=== PATIENT | male | born 1990 | race Caucasian/White ===

== ENCOUNTER → 2016-05-01 | Outpatient (CLI) | payer OTHER ==
[~2016-05-01] MED LIST: ABILIFY10 MG PO; AMOXICILLIN500 MG PO; ANAPROX DS550 MG PO; ATIVAN0.5 MG PO; BACTRIM DS 8001 TA1 PO; BUPROPION HYDR150 M4 PO; CARAFATE1 G1 PO; CATAFLAM50 MG PO; CIPROFLOXACIN500 MG PO; CLARITIN-D 10 M1 T21 PO; CLINDAMYCIN HC300 MG PO; CLINDAMYCIN150 MG PO; CLONAZEPAM0.5 M2 PO; CLONAZEPAM0.5 MG PO; DICLOFENAC SODI25 MG PO; Depakote ER500 MG PO; ENSURE; FLEXERIL10 MG PO; FLEXERIL5 MG PO; HYDROCODONE BIT1 T11 PO; IBU800 M1 PO; KEFLEX500 MG PO; MEDROL DOSEPAK4 MG PO; MELATONIN5 M2 PO; MOTRIN600 MG PO; MOTRIN800 MG PO; OMEPRAZOLE40 MG PO; PREDNICOT20 MG PO; PROTONIX40 MG PO; RISPERDAL0.25 MG PO; RISPERDAL1 MG PO; ROBAXIN500 MG PO; SEROQUEL100 MG PO; TORADOL10 MG PO; TRAZADONE HYDR100 MG PO; TRAZODONE HCL100 MG PO; TYLENOL325 M1 PO; ULTRAM50 MG PO; VISTARIL25 MG PO; VISTARIL50 MG PO; VITAMIN D50000 IU PO; ZOFRAN ODT4 MG SL; ZOLOFT100 MG PO
== END | disposition home or self-care (01) ==
LOC: MRI 11:00
DX: F25.9 Schizoaffective disorder, unspecified (principal); R51 Headache; R42 Dizziness and giddiness

== ENCOUNTER → 2016-07-31 | Outpatient (CLI) | payer OTHER | END | disposition home or self-care (01) | LOC: LAB 14:20 | DX: E55.9 Vitamin D deficiency, unspecified (principal); Z20.2 Contact with and (suspected) exposure to infections with a predominantly sexual mode of transmission ==

== ENCOUNTER → 2017-03-07 | Outpatient (CLI) | payer OTHER ==
[2017-03-07 16:46] LABS: BASO # 0.1 10*3/uL (0.0-0.1); BASO % 0.5 % (0.0-1.0); EOS # 0.3 10*3/uL (0.0-0.4); HEMATOCRIT 52.5 % (42.0-52.0); HEMOGLOBIN 17.8 g/dl (14.0-18.0); LYMPH # 1.7 10*3/uL (1.3-4.4); LYMPH % 15.9 % (27.0-41.0); MEAN CELL VOLUME 93.8 fl (80.0-94.0); MEAN CORPUSCULAR HGB 31.8 pg (27.0-31.0); MEAN CORPUSCULAR HGB CONC 33.9 g/dl (33.0-37.0); MEAN PLATELET VOLUME 12.4 fl (9.6-12.3); MONO # 0.6 10*3/uL (0.1-1.0); MONO % 5.9 % (3.0-9.0); NEUT # 7.7 10*3/uL (2.3-7.9); NEUT % 74.4 % (47.0-73.0); PLATELET COUNT AUTOMATED 183 10*3/uL (130-400); WHITE BLOOD COUNT 10.4 10*3/uL (4.8-10.8)
[2017-03-07 17:02] LABS: ALBUMIN 4.6 gm/dl (3.1-4.5); ALKALINE PHOSPHATASE 91 U/L (45-117); BUN 11 mg/dl (7-24); CHLORIDE 104 mmol/L (98-107); POTASSIUM 4.3 mmol/L (3.5-5.1); SGOT/AST 20 IU/L (3-35); SGPT/ALT 22 U/L (12-78); SODIUM 138 mmol/L (136-145); TOTAL PROTEIN 9.2 gm/dL (6.4-8.2)
== END | disposition home or self-care (01) ==
LOC: LAB 16:03
PROVIDERS: Nurse Practitioner Primary Care
DX: Z09 Encounter for follow-up examination after completed treatment for conditions other than malignant neoplasm (principal); A49.02 Methicillin resistant Staphylococcus aureus infection, unspecified site; E46 Unspecified protein-calorie malnutrition

== ENCOUNTER 2017-03-12 14:51 | Emergency (ER) | payer OTHER ==
[~2017-03-12] VITALS: Wt 54.4 kg
[2017-03-12 15:04] VITALS: BP 115/78
[2017-03-12] MEDS ORDERED: CLARITIN10 MG PO (15:16)
[2017-03-12] MEDS ORDERED: ROBITUSSIN DM 105 ML PO (15:16)
[2017-03-12] MEDS ORDERED: FLONASE ALLERG9.9 ML NAS (15:16)
[2017-03-12] MEDS ORDERED: PREDNISONE10 MG PO (15:16)
== END 2017-03-12 16:31 | disposition home or self-care (01) ==
LOC: ED 14:51
DX: B34.9 Viral infection, unspecified (principal); Z88.8 Allergy status to other drugs, medicaments and biological substances; Z79.899 Other long term (current) drug therapy

== ENCOUNTER 2017-04-12 14:05 | Emergency (ER) | payer OTHER ==
[~2017-04-12] VITALS: Ht 193 cm; Wt 63.5 kg
[~2017-04-12 14:05] MED LIST changes: +CLARITIN10 MG PO; +FLONASE ALLERG9.9 ML NAS; +PREDNISONE10 MG PO; +ROBITUSSIN DM 105 ML PO
[2017-04-12] MEDS ORDERED: VALIUM10 MG PO (14:27)
[2017-04-12 14:31] VITALS: BP 101/65
[2017-04-12] MEDS ORDERED: TESSALON PERLE100 M1 PO (15:33)
[2017-04-12] MEDS ORDERED: ZITHROMAX250 MG PO (15:33)
[2017-04-12] MEDS ORDERED: FLONASE ALLERG9.9 ML NAS (15:33)
== END 2017-04-12 18:15 | disposition home or self-care (01) ==
LOC: ED 14:05
DX: J40 Bronchitis, not specified as acute or chronic (principal); J32.9 Chronic sinusitis, unspecified; F17.200 Nicotine dependence, unspecified, uncomplicated; Z79.899 Other long term (current) drug therapy; Z88.6 Allergy status to analgesic agent

== ENCOUNTER 2017-10-18 23:51 | Emergency (ER) | payer OTHER ==
[~2017-10-18] VITALS: Ht 193 cm; Wt 74.8 kg
[~2017-10-18 23:51] MED LIST changes: +TESSALON PERLE100 M1 PO; +VALIUM10 MG PO; +ZITHROMAX250 MG PO
[2017-10-19 00:01] VITALS: BP 112/70
[2017-10-19 00:11] LABS: BASO # 0.1 10*3/uL (0.0-0.1); BASO % 0.8 % (0.0-1.0); EOS # 0.3 10*3/uL (0.0-0.4); EOS % 4.1 % (1.0-4.0); HEMATOCRIT 51.2 % (42.0-52.0); HEMOGLOBIN 17.2 g/dl (14.0-18.0); LYMPH # 2.7 10*3/uL (1.3-4.4); LYMPH % 34.5 % (27.0-41.0); MEAN CELL VOLUME 96.2 fl (80.0-94.0); MEAN CORPUSCULAR HGB 32.3 pg (27.0-31.0); MEAN CORPUSCULAR HGB CONC 33.6 g/dl (33.0-37.0); MEAN PLATELET VOLUME 12.3 fl (9.6-12.3); MONO # 0.6 10*3/uL (0.1-1.0); MONO % 7.7 % (3.0-9.0); NEUT # 4.1 10*3/uL (2.3-7.9); NEUT % 52.3 % (47.0-73.0); PLATELET COUNT AUTOMATED 161 10*3/uL (130-400); RED BLOOD COUNT 5.32 10*6/uL (4.50-5.90); RED CELL DISTRI WIDTH 12.6 % (0-14.5); WHITE BLOOD COUNT 7.8 10*3/uL (4.8-10.8)
[2017-10-19 00:21] LABS: ACT PARTIAL THROMBO TIME 26.6 SECONDS (20.8-31.5)
[2017-10-19 00:27] LABS: ALBUMIN 4.4 gm/dl (3.1-4.5); ALKALINE PHOSPHATASE 68 U/L (45-117); BUN 13 mg/dl (7-24); CHLORIDE 107 mmol/L (98-107); CREATININE 1.04 mg/dL (0.70-1.30); POTASSIUM 3.8 mmol/L (3.5-5.1); SGOT/AST 19 IU/L (3-35); SGPT/ALT 26 U/L (12-78); SODIUM 143 mmol/L (136-145); TOTAL PROTEIN 8.1 gm/dL (6.4-8.2)
[2017-10-19 00:30] LABS: TROPONIN I < 0.015 ng/ml (<0.045)
[2017-10-19] MEDS ORDERED: SEROQUEL XR400 MG PO (01:04)
== END 2017-10-19 03:04 | disposition home or self-care (01) ==
LOC: ED 23:51
PROVIDERS: Student in an Organized Health Care Education/Training Program
DX: R07.89 Other chest pain (principal); Z79.899 Other long term (current) drug therapy; Z88.6 Allergy status to analgesic agent

== ENCOUNTER → 2017-11-25 | Outpatient (CLI) | payer OTHER ==
[~2017-11-25] MED LIST changes: +ASPIRIN81 M1 PO; +SEROQUEL XR400 MG PO
--- NOTE | ~2017-11-25 | ST ---
[place], [place] EXERCISE STRESS TEST REPORT NAME: CARLOS RAMOS [facility] #: [id number] UNIT #: [id number] ROOM: DOCTOR: DARCIE OVERTON MD BIRTHDATE: [birth year] DOS: 11/25/2017 INDICATIONS: Precordial chest pain. REFERRED BY: Dr. Ailin Jha. FINDINGS: The patient walked on a full Xander treadmill stress test for 11 minutes 2 seconds. He stopped because of leg fatigue. He achieved a maximum heart rate of 160, which represented 82% of his maximum predicted heart rate. The resting blood pressure of 100/80 fozia to 138/76. The patient's electrocardiogram was normal throughout. He did have early repolarization changes at rest. These normalized with exercise, but he did not develop any diagnostic ST depression or further elevation. He achieved an exercise MET level of 12.5. He had pain throughout the study and did not notice any change in his pain with exercise. IMPRESSION: 1. Good exercise capacity without change in baseline chest pain and without EKG changes. 2. The patient achieved 82% of his maximum predicted heart rate. 3. Castro treadmill score 11 consistent with a low probability for future cardiac events. The patient did not achieve 85% of his maximum predicted heart rate and therefore the test is technically nondiagnostic; however, his excellent exercise capacity without electrocardiographic changes does predict a good cardiac prognosis. DARCIE OVERTON MD CM:STRESS:EXERCISE STRESS TEST REPORT [id number] DARCIE OVERTON MD
== END | disposition home or self-care (01) ==
LOC: CARD 01:16
DX: R06.09 Other forms of dyspnea (principal)

== ENCOUNTER → 2017-11-26 | Outpatient (CLI) | payer OTHER | END | disposition home or self-care (01) | LOC: CARD 11-10 13:00 | DX: I08.1 Rheumatic disorders of both mitral and tricuspid valves (principal); R06.09 Other forms of dyspnea ==

== ENCOUNTER 2020-09-13 03:14 | Emergency (ER) | payer OTHER ==
[~2020-09-13] VITALS: Ht 193 cm; Wt 68.0 kg
[~2020-09-13 03:14] MED LIST changes: +COGENTIN0.5 MG PO; +ZYRTEC10 MG PO
[2020-09-13 03:23] VITALS: BP 119/78
== END 2020-09-13 04:59 | disposition home or self-care (01) ==
LOC: ED 03:14
DX: S50.12XA Contusion of left forearm, initial encounter (principal); F17.200 Nicotine dependence, unspecified, uncomplicated; Z79.899 Other long term (current) drug therapy; Z88.8 Allergy status to other drugs, medicaments and biological substances; Y93.89 Activity, other specified; Y92.89 Other specified places as the place of occurrence of the external cause; Y99.0 Civilian activity done for income or pay

== ENCOUNTER 2021-08-22 21:58 | Emergency (ER) | payer OTHER ==
[~2021-08-22] VITALS: Ht 193 cm; Wt 63.5 kg
[2021-08-22 22:04] VITALS: BP 123/75
== END 2021-08-22 22:31 | disposition home or self-care (01) ==
LOC: ED 21:58
DX: S71.111A Laceration without foreign body, right thigh, initial encounter (principal); Z88.8 Allergy status to other drugs, medicaments and biological substances; W45.8XXA Other foreign body or object entering through skin, initial encounter; Y93.89 Activity, other specified; Y92.89 Other specified places as the place of occurrence of the external cause; Y99.8 Other external cause status

== ENCOUNTER 2022-02-08 22:48 | Emergency (ER) | payer OTHER ==
[~2022-02-08] VITALS: Ht 193 cm; Wt 68.0 kg
[2022-02-08 23:05] VITALS: BP 114/82
[2022-02-08] MEDS ORDERED: CIPRODEX 0.3%-7.5 ML OT (23:06)
[2022-02-08] MEDS ORDERED: CEFDINIR300 MG PO (23:06)
== END 2022-02-08 23:20 | disposition home or self-care (01) ==
LOC: ED 22:48
DX: H60.91 Unspecified otitis externa, right ear (principal); Z88.8 Allergy status to other drugs, medicaments and biological substances

== ENCOUNTER 2022-08-11 15:17 | Emergency (ER) | payer MEDICAID ==
[~2022-08-11] VITALS: Ht 193 cm; Wt 68.0 kg
[~2022-08-11 15:17] MED LIST changes: +CEFDINIR300 MG PO; +CIPRODEX 0.3%-7.5 ML OT
[2022-08-11 15:25] VITALS: BP 111/70
[2022-08-11] MEDS ORDERED: CIPROFLOX-DEXA7.5 ML OT (15:42)
[2022-08-11] MEDS ORDERED: AMOX-CLAV 875-1 EACH PO (15:42)
== END 2022-08-11 15:57 | disposition home or self-care (01) ==
LOC: ED 15:17
DX: H66.91 Otitis media, unspecified, right ear (principal); H60.91 Unspecified otitis externa, right ear; Z88.8 Allergy status to other drugs, medicaments and biological substances; F17.200 Nicotine dependence, unspecified, uncomplicated

== ENCOUNTER 2022-10-16 10:16 | Emergency (ER) | payer MEDICAID ==
[~2022-10-16] VITALS: Wt 68.0 kg
[~2022-10-16 10:16] MED LIST changes: +AMOX-CLAV 875-1 EACH PO; +CIPROFLOX-DEXA7.5 ML OT
[2022-10-16 10:25] VITALS: BP 101/67
[2022-10-16] MEDS ORDERED: AMOXICILLIN875 MG PO (10:47)
== END 2022-10-16 11:06 | disposition home or self-care (01) ==
LOC: ED 10:16
DX: H60.91 Unspecified otitis externa, right ear (principal); F32.A Depression, unspecified; F41.9 Anxiety disorder, unspecified; Z88.6 Allergy status to analgesic agent

== ENCOUNTER 2022-11-20 18:15 | Emergency (ER) | payer MEDICAID ==
[~2022-11-20] VITALS: Ht 193 cm; Wt 68.0 kg
[~2022-11-20 18:15] MED LIST changes: +AMOXICILLIN875 MG PO
[2022-11-20 18:20] VITALS: BP 116/61
[2022-11-20] MEDS ORDERED: CIPRODEX 0.3%-7.5 ML OT (18:48)
[2022-11-20] MEDS ORDERED: AMOX-CLAV 875-1 EACH PO (18:48)
[2022-11-20] MEDS ORDERED: DIFLUCAN150 MG PO (18:48)
== END 2022-11-20 18:55 | disposition home or self-care (01) ==
LOC: ED 18:15
DX: H92.11 Otorrhea, right ear (principal); F32.A Depression, unspecified; F41.9 Anxiety disorder, unspecified; F90.9 Attention-deficit hyperactivity disorder, unspecified type; Z88.6 Allergy status to analgesic agent; Z98.890 Other specified postprocedural states

== ENCOUNTER 2023-05-04 03:11 | Emergency (ER) | payer MEDICAID ==
[~2023-05-04] VITALS: Ht 193 cm; Wt 68.0 kg
[~2023-05-04 03:11] MED LIST changes: +DIFLUCAN150 MG PO
[2023-05-04 03:15] VITALS: BP 106/64
== END 2023-05-04 03:59 | disposition home or self-care (01) ==
LOC: ED 03:11
DX: Z01.84 Encounter for antibody response examination (principal); F32.A Depression, unspecified; F41.9 Anxiety disorder, unspecified; F90.9 Attention-deficit hyperactivity disorder, unspecified type; Z20.822 Contact with and (suspected) exposure to COVID-19; Z88.6 Allergy status to analgesic agent; Z98.890 Other specified postprocedural states

== ENCOUNTER 2023-09-27 21:50 | Emergency (ER) | payer MEDICAID ==
[~2023-09-27] VITALS: Ht 193 cm; Wt 68.0 kg
[2023-09-27 22:09] VITALS: BP 104/68
[2023-09-27 23:21] LABS: BILIRUBIN Negative (Negative); BLOOD 3+ (Negative); CLARITY Cloudy (Clear); COLOR Red (Yellow); GLUCOSE Negative (Negative); KETONE Negative (Negative); LEUKO ESTERASE Trace (Negative); NITRITE Negative (Negative); PH 7.5 (4.5-8.0)
[2023-09-27 23:44] LABS: RBC TNTC rbc/hpf (0-2)
[2023-09-27 23:45] LABS: BACTERIA 1+
[2023-09-28] MEDS ORDERED: Tamsulosin Hydrochloride 0.4 MG CAP PO ONE (00:15)
[2023-09-28] MEDS ORDERED: Ketorolac Tromethamine 60 MG/2 ML VIAL IM ONE (00:30)
[2023-09-28] MEDS ORDERED: ONDANSETRON4 MG SL (00:31)
[2023-09-28] MEDS ORDERED: FLOMAX0.4 MG PO (00:31)
[2023-09-28] MEDS ORDERED: HYDROCODONE-AC1 EAC1 PO (00:31)
== END 2023-09-28 01:36 | disposition home or self-care (01) ==
LOC: ED 21:50
PROVIDERS: Internal Medicine
DX: N13.2 Hydronephrosis with renal and ureteral calculous obstruction (principal); N13.4 Hydroureter; F32.A Depression, unspecified; F41.9 Anxiety disorder, unspecified; Z88.6 Allergy status to analgesic agent; Z98.890 Other specified postprocedural states

== ENCOUNTER 2024-01-22 20:51 | Emergency (ER) | payer MEDICAID ==
[~2024-01-22] VITALS: Ht 193 cm; Wt 68.0 kg
[~2024-01-22 20:51] MED LIST changes: +FLOMAX0.4 MG PO; +HYDROCODONE-AC1 EAC1 PO; +ONDANSETRON4 MG SL
[2024-01-22] MEDS ORDERED: SODIUM CHLORIDE 0.9% 1,000 ML IV ONE (21:20)
[2024-01-22 21:34] LABS: BASO % 0.7 % (0.0-1.0); EOS # 0.2 10*3/uL (0.0-0.4); EOS % 3.5 % (1.0-4.0); HEMATOCRIT 44.5 % (42.0-52.0); LYMPH # 1.3 10*3/uL (1.3-4.4); LYMPH % 24.6 % (27.0-41.0); MEAN CELL VOLUME 96.1 fl (80.0-94.0); MEAN CORPUSCULAR HGB 31.5 pg (27.0-31.0); MEAN CORPUSCULAR HGB CONC 32.8 g/dl (33.0-37.0); MEAN PLATELET VOLUME 10.7 fl (9.6-12.3); MONO # 0.4 10*3/uL (0.1-1.0); MONO % 6.5 % (3.0-9.0); NEUT # 3.5 10*3/uL (2.3-7.9); NEUT % 64.5 % (47.0-73.0); PLATELET COUNT AUTOMATED 178 10*3/uL (130-400); RED BLOOD COUNT 4.63 10*6/uL (4.50-5.90); RED CELL DISTRI WIDTH 12.2 % (0-14.5); WHITE BLOOD COUNT 5.4 10*3/uL (4.8-10.8)
[2024-01-22 21:51] LABS: BUN 10 mg/dl (9-23); CHLORIDE 108 mmol/L (98-107)
[2024-01-22] MEDS ORDERED: MORPHINE Sulfate 2 MG/ML SYR IV ONE (22:15)
[2024-01-22 22:30] VITALS: BP 105/61
[2024-01-22] MEDS ORDERED: CIPRO500 MG PO (23:24)
[2024-01-22] MEDS ORDERED: FLOMAX0.4 MG PO (23:24)
[2024-01-22 23:33] LABS: BILIRUBIN Negative (Negative); BLOOD 3+ (Negative); CLARITY Clear (Clear); COLOR Orange (Yellow); GLUCOSE Negative (Negative); KETONE Negative (Negative); LEUKO ESTERASE Trace (Negative); NITRITE Negative (Negative)
[2024-01-22 23:44] LABS: RBC TNTC rbc/hpf (0-2)
== END 2024-01-22 23:42 | disposition home or self-care (01) ==
LOC: ED 20:51
PROVIDERS: Internal Medicine
DX: N13.2 Hydronephrosis with renal and ureteral calculous obstruction (principal); R11.2 Nausea with vomiting, unspecified; F32.A Depression, unspecified; F41.9 Anxiety disorder, unspecified; F90.9 Attention-deficit hyperactivity disorder, unspecified type; Z88.6 Allergy status to analgesic agent; Z98.890 Other specified postprocedural states